=== PATIENT | male | born 1995 | race Caucasian/White ===

== ENCOUNTER 2023-12-13 21:37 | Emergency (ER) | payer MEDICAID ==
[~2023-12-13] VITALS: Ht 172.7 cm; Wt 62.0 kg
[2023-12-13 21:46] VITALS: O2SAT 98
[2023-12-13 23:39] LABS: HEMATOCRIT 43.7 % (42.0-52.0); HEMOGLOBIN 14.9 g/dL (14.0-18.0); MEAN CORPUSCULAR HEMOGLOBIN 30.7 pg (28.0-32.0); MEAN CORPUSCULAR VOLUME 90.3 fL (80.0-94.0); PLATELET 307 x1000/uL (130-400); RED BLOOD CELL COUNT 4.84 mill/uL (4.7-6.1); RED CELL DISTRIBUTION WIDTH 13.6 % (11.6-14.6); WHITE BLOOD COUNT 12.4 x1000/uL (4.5-11.0)
[2023-12-13 23:44] LABS: CHLORIDE 104 mEq/L (98-107); POTASSIUM 3.3 mEq/L (3.5-5.1); SODIUM 139 mEq/L (136-145)
[2023-12-13 23:45] LABS: CARBON DIOXIDE 24 mEq/L (21-32)
[2023-12-13 23:46] LABS: CALCIUM 10.3 mg/dL (8.7-10.4)
[2023-12-13 23:50] LABS: CREATININE 1.1 mg/dL (0.6-1.3); GLUCOSE 138 mg/dL (70-105)
[2023-12-13 23:51] LABS: UREA NITROGEN BLOOD 12 mg/dL (9-23)
[2023-12-13 23:52] LABS: ALANINE AMINOTRANSFERASE 21 IU/L (10-49); ALBUMIN 5.1 g/dL (3.2-4.8); ASPARTATE AMINOTRANSFERASE 20 IU/L (<34)
[2023-12-13 23:53] LABS: BILIRUBIN DIRECT 0.3 mg/dL (<=3.0); BILIRUBIN TOTAL 0.8 mg/dL (0.1-1.0); PROTEIN TOTAL 7.7 g/dL (6.0-8.3)
[2023-12-14] MEDS: ONDANSETRON 4MG ODT PO ONE (01:12)
[2023-12-14 01:18] LABS: CLARITY URINE CLEAR (CLEAR); COLOR URINE DARK YELLOW (YELLOW); GLUCOSE URINE NEGATIVE (NEGATIVE); KETONES URINE 4+ (NEGATIVE); LEUKOCYTE ESTERASE URINE NEGATIVE (NEGATIVE); NITRITE URINE NEGATIVE (NEGATIVE); OCCULT BLOOD URINE NEGATIVE (NEGATIVE); PROTEIN URINE 2+ (NEGATIVE); SPECIFIC GRAVITY URINE 1.039 (1.005-1.030)
[2023-12-14 01:54] LABS: RBC URINE 0-2 /hpf (0-2); SQUAMOUS EPITHELIAL CELL URINE NONE SEEN /lpf (RARE/1+)
[2023-12-14 01:55] LABS: BACTERIA URINE 1+; MUCUS URINE 1+ /lpf (NONE/TRACE)
[2023-12-14] MEDS ORDERED: ONDA4TAB50 MT (03:25)
[2023-12-14] MEDS ORDERED: BISM262T51 MT (03:25)
[2023-12-14 04:24] VITALS: BP 107/73; PULSE 99; RESP 15; TEMP 98.3
== END 2023-12-14 04:26 | disposition home or self-care (01) ==
LOC: ER 21:37
DX: R11.2 Nausea with vomiting, unspecified (principal); R10.9 Unspecified abdominal pain; Z88.8 Allergy status to other drugs, medicaments and biological substances
CPT/HCPCS: 99283; 80076; 80048; 83690; 85027; 36415; 81003; Q0162